=== PATIENT | male | born 1955 | race African-American/Black ===

== ENCOUNTER 2019-02-25 11:46 | Emergency (ER) | payer BC ==
[~2019-02-25] VITALS: Ht 188 cm; Wt 90.7 kg
--- NOTE | 2019-02-25 12:52 | NUR ---
PATIENT BROUGHT TO TRIAGE TO BE EVALUATED BY VINICIO Orosco
== END 2019-02-25 13:02 | disposition short-term general hospital (02) ==
LOC: ER 11:46
DX: I10 Essential (primary) hypertension (principal)